=== PATIENT | female | born 1985 | race Caucasian/White ===

== ENCOUNTER 2024-08-20 08:18 | Outpatient (CLI) | payer OTHER, SELFPAY ==
[2024-08-20 10:12] LABS: Estradiol 714.8 pg/mL; Progesterone 32.55 ng/mL
== END 2024-08-20 08:19 | disposition home or self-care (01) ==
DX: Z32.00 Encounter for pregnancy test, result unknown (principal)
CPT/HCPCS: 36415; 82670; 84144; 84702